=== PATIENT | male | born 1985 | race African-American/Black ===

== ENCOUNTER 2017-04-03 18:12 | Emergency (ER) | payer BC ==
[~2017-04-03] VITALS: Ht 185.4 cm; Wt 73.1 kg
[2017-04-03] MEDS ORDERED: COLACE100 MG PO (19:11)
[2017-04-03] MEDS ORDERED: PERCOCET 5/31 TABLET PO (19:11)
[2017-04-03 19:28] VITALS: BP 121/89
== END 2017-04-03 19:27 | disposition home or self-care (01) ==
LOC: EME 18:12
DX: K64.4 Residual hemorrhoidal skin tags (principal); Z72.0 Tobacco use
CPT/HCPCS: 99281; 99284